=== PATIENT | male | born 1980 | race Caucasian/White ===

== ENCOUNTER 2024-02-16 13:20 | Inpatient (IN) | payer OTHER ==
[2024-02-16 13:59] VITALS: BMI 21.2
[2024-02-16] MEDS ORDERED: NALOXONE (NARCAN) HCL 4 MG/0.1 ML SPRAY NS PRN (14:16)
[2024-02-16] MEDS ORDERED: MAG HYDROX/AL HYDROX/SIMETH 30 ML UNIT-DOSE CUP PO PRN (14:16)
[2024-02-16] MEDS ORDERED: BISMUTH SUBSALICYLATE 524 MG/30 ML PO PRN (14:16)
[2024-02-16] MEDS ORDERED: LOPERAMIDE HCL 2 MG CAPSULE PO PRN (14:16)
[2024-02-16] MEDS ORDERED: MAGNESIUM HYDROX 2400MG/30ML ORAL SUSPENSION 30 ML CUP PO PRN (14:16)
[2024-02-16] MEDS ORDERED: BENZONATATE 200 MG CAPSULE PO PRN (14:16)
[2024-02-16] MEDS ORDERED: DICYCLOMINE HCL 10 MG CAPSULE PO PRN (14:16)
[2024-02-16] MEDS ORDERED: NICOTINE POLACRILEX 2 MG GUM BUC PRN (14:16)
[2024-02-16] MEDS ORDERED: POLYETHYLENE GLYCOL (HEALTHYLAX) 3350 17 GM PACKET PO PRN (14:16)
[2024-02-16] MEDS ORDERED: BENZOCAINE/MENTHOL (CHLORASEPTIC ) LOZENGE MM PRN (14:16)
[2024-02-16] MEDS ORDERED: ACETAMINOPHEN 325 MG TABLET (FP) PO PRN (14:16)
[2024-02-16] MEDS ORDERED: NALOXONE HCL 0.4 MG/ML VIAL IM PRN (14:16)
[2024-02-16] MEDS ORDERED: NICOTINE POLACRILEX 2 MG LOZENGE BC PRN (14:16)
[2024-02-16] MEDS ORDERED: guaiFENesin 600 MG TABLET.ER (FP) PO PRN (14:16)
[2024-02-16] MEDS ORDERED: IBUPROFEN 600 MG TABLET (FP) PO PRN (14:16)
[2024-02-16] MEDS ORDERED: IBUPROFEN 400 MG TABLET (FP) PO PRN (14:16)
[2024-02-16] MEDS: METHOCARBAMOL 500 MG TABLET PO PRN (17:58)
[2024-02-16] MEDS: THIAMINE 100 MG TABLET PO SCH (21:49)
[2024-02-16] MEDS: MELATONIN 5 MG TABLETS PO SCH (21:49)
[2024-02-17] MEDS: methaDONE HCL 10 MG TABLET (FOR DETOX USE ONLY) PO ONE ×2 (08:50→09:16)
[2024-02-17] MEDS: PRENATAL VITAMINS W/ FOLIC ACID TABLET (FP) PO SCH (09:21)
[2024-02-17] MEDS ORDERED: diazePAM 5 MG TABLET PO PRN (10:45)
[2024-02-17] MEDS: diazePAM 5 MG TABLET PO SCH (11:09)
[2024-02-17 14:03] LABS: HEMATOCRIT 38.2 % (35.4-49); HEMOGLOBIN 13.1 GM/dL (11.7-16.9); MCH 32.7 pg (25.7-33.7); MCHC 34.3 g/dl (32.0-35.9); MEAN CELL VOLUME 95.4 fl (80-96); MEAN PLT VOLUME 9.1 fl (7.5-11.1); PLATELET COUNT 114 10^3/uL (134-434); RDW 13.6 % (11.9-15.9); WHITE BLOOD COUNT 5.5 K/mm3 (4.0-10.0)
[2024-02-17 14:21] LABS: POTASSIUM 3.9 mmol/L (3.5-5.1)
[2024-02-17 14:28] LABS: ALBUMIN 3.5 g/dl (3.4-5.0); BLOOD UREA NITROGEN 9.7 mg/dL (7-18); CALCIUM 8.9 mg/dL (8.5-10.1)
[2024-02-17 14:31] LABS: BILIRUBIN,TOTAL 2.3 mg/dL (0.2-1); CREATININE 0.6 mg/dL (0.55-1.3); TOT PROT 6.5 g/dl (6.4-8.2)
[2024-02-17 15:17] LABS: HIV INTERPRETATION NEGATIVE (NEGATIVE)
[2024-02-17] MEDS: MIRTAZAPINE 15 MG TABLET (FP) PO SCH (22:33)
[2024-02-18] MEDS: ONDANSETRON *ODT* 4 MG TABLET SL PRN (17:10)
[2024-02-18] MEDS: cloNIDine HCL 0.1 MG TABLET PO PRN (21:31)
[2024-02-19] MEDS: diazePAM 5 MG TABLET PO SCH (05:31)
[2024-02-19] MEDS: methaDONE HCL 10 MG TABLET (FOR DETOX USE ONLY) PO ONE (09:43)
[2024-02-19] MEDS: levETIRAcetam 500 MG TABLET (FP) PO ONE (16:45)
[2024-02-19] MEDS: levETIRAcetam 500 MG TABLET (FP) PO SCH (21:44)
[2024-02-20] MEDS: diazePAM 5 MG TABLET PO SCH (05:44)
[2024-02-21] MEDS: diazePAM 5 MG TABLET PO ONE (05:46)
[2024-02-21] MEDS: methaDONE HCL 10 MG TABLET (FOR DETOX USE ONLY) PO ONE (09:54)
[2024-02-22 10:46] VITALS: BP 108/77; PULSE 98; RESP 17; TEMP 97.9
== END 2024-02-22 09:30 | disposition home or self-care (01) | DRG 773 ==
LOC: YASAS 13:20 → Y6N 15:31
PROVIDERS: ADMIT Allergy & Immunology; ATTEND Surgery
PROC: HZ2ZZZZ Detoxification Services for Substance Abuse Treatment (ICD-10-PCS; principal; 2024-02-16)
DX: F11.23 Opioid dependence with withdrawal (principal); F10.230 Alcohol dependence with withdrawal, uncomplicated; F12.20 Cannabis dependence, uncomplicated; F17.210 Nicotine dependence, cigarettes, uncomplicated; F19.280 Other psychoactive substance dependence with psychoactive substance-induced anxiety disorder; F19.282 Other psychoactive substance dependence with psychoactive substance-induced sleep disorder; F41.8 Other specified anxiety disorders; G40.909 Epilepsy, unspecified, not intractable, without status epilepticus; K59.00 Constipation, unspecified; Z62.810 Personal history of physical and sexual abuse in childhood; Z63.8 Other specified problems related to primary support group
CPT/HCPCS: 36415; 80053; 80305; 80307; 82247; 85027; 86780; 86803; 87389; 93005; 93010; Q0162